=== PATIENT | female | born 1995 | race Caucasian/White ===

== ENCOUNTER 2021-06-19 00:14 | Emergency (ER) | payer BC ==
[~2021-06-19] VITALS: Ht 154.9 cm; Wt 59.9 kg
[2021-06-19 00:34] VITALS: BP 121/71
--- NOTE | 2021-06-19 00:41 | NUR ---
TO LOBBY FOLLOWING TRIAGE
--- NOTE | 2021-06-19 02:26 | NUR ---
PT AMBULATED TO BED 03
--- NOTE | 2021-06-19 02:33 | NUR ---
25 YO F BIB SELF WITH C/C OF LUPUS FLARE UP. PT STATES SHE HAS 9/10 MUSCLE PAIN, DESCRIBED A PULLING FEELING, MOSTLY ON BACK AND L SHOULDER. DENIES CHILLS, N/V/D AND FEVER. PT DENIES TAKING MEDS FOR PAIN EXCEPT FOR HER NORMAL HOME MEDS. BED LOCKED IN LOWEST POSITION, SIDE RAILS X1. HX: LUPUS RX: GABAPENTIN, PREDNISONE, AND FOLATE NKA LAST MENS: 06/09/21
[2021-06-19] MEDS ORDERED: HYDROcodone/APAP 5/325 MG 1 TAB TAB PO ONE (03:30)
--- NOTE | 2021-06-19 03:35 | NUR ---
LAB AT BEDSIDE.
[2021-06-19 03:45] LABS: BASOPHILS % (AUTO) 0.2 % (0.0-2.0); EOSINOPHILS # (AUTO) 0.1 K/uL (0-0.4); EOSINOPHILS % (AUTO) 0.8 % (0.0-4.0); HEMATOCRIT 39.4 % (36-48); HEMOGLOBIN 13.5 g/dL (12.0-16.0); LYMPHOCYTES # (AUTO) 4.8 K/uL (2.5-16.5); MEAN CORPUSCULAR HEMOGLOBIN 30 pg (27-31); MEAN CORPUSCULAR HGB CONC 34 g/dL (33-37); MEAN CORPUSCULAR VOLUME 89.1 fL (80-94); MONOCYTES # (AUTO) 0.8 K/uL (0.8-1.0); MONOCYTES % (AUTO) 7.4 % (1.7-9.3); NEUTROPHILS # (AUTO) 4.6 K/uL (1.8-7.7); NEUTROPHILS % (AUTO) 44.6 % (42.2-75.2); PLATELET COUNT (AUTO) 366 K/uL (140-450); RED BLOOD CELL COUNT(AUTO) 4.42 MIL/uL (4.20-5.40); RED CELL DISTRIBUTION WIDTH 13.7 % (11.6-13.7); WHITE BLOOD COUNT (AUTO) 10.2 K/uL (4.8-10.8)
[2021-06-19 03:52] LABS: ANION GAP 14.6 (8-16); CREATININE 0.9 mg/dL (0.6-1.3); POTASSIUM 3.6 mmol/L (3.5-5.1)
--- NOTE | 2021-06-19 03:57 | NUR ---
PT SITTING UP IN BED USING PHONE. ALL NEEDS MET AT THIS TIME. BED LOCKED IN LOWEST POSITION, SIDE RAILS X2.
--- NOTE | 2021-06-19 04:12 | NUR ---
PT AMBULATED TO WITH STEADY GAIT.
[2021-06-19] MEDS ORDERED: HYDR-5080 PO (04:52)
[2021-06-19 04:59] VITALS: BP 124/70
== END 2021-06-19 04:59 | disposition home or self-care (01) ==
LOC: MED 00:14
DX: M79.10 Myalgia, unspecified site (principal); M25.511 Pain in right shoulder; M25.512 Pain in left shoulder; M54.6 Pain in thoracic spine; Z79.899 Other long term (current) drug therapy
CPT/HCPCS: 36415; 80048; 84702; 85025; 99283

== ENCOUNTER 2022-06-10 20:49 | Emergency (ER) | payer BC, OTHER ==
[~2022-06-10] VITALS: Ht 154.9 cm; Wt 58.1 kg
[~2022-06-10 20:49] MED LIST: HYDR-5080 PO
[2022-06-10 20:55] VITALS: BP 119/76
--- NOTE | 2022-06-10 20:55 | NUR ---
TO BED AMBULATORY
--- NOTE | 2022-06-10 21:04 | NUR ---
Patient BIB by family from home. C/O bodyache x today. Patient reported, had bodyache all day, no fever, no N/V/D, No cough, congestion. Hx Lupus
--- NOTE | 2022-06-10 21:20 | NUR ---
Dr. Ayala examining patient.
[2022-06-10] MEDS ORDERED: MORPHINE SULFATE 4 MG/ML SYR IM ONE (21:25)
[2022-06-10] MEDS ORDERED: CIPR500T4 PO (21:38)
[2022-06-10] MEDS ORDERED: ACET-8386 PO (21:38)
[2022-06-10 21:52] VITALS: BP 105/56
--- NOTE | 2022-06-10 21:52 | NUR ---
Patient discharged with v/s stable. Written and verbal after care instructions given and explained. Patient alert, oriented and verbalized understanding of instructions. Ambulatory with steady gait. All questions addressed prior to discharge. ID band removed. Patient advised to follow up with PMD. Rx of [place] and Ciprofloxacin given. Patient educated on indication of medication including possible reaction and side effects. Opportunity to ask questions provided and answered.
== END 2022-06-10 21:52 | disposition home or self-care (01) ==
LOC: MED 20:49
DX: N39.0 Urinary tract infection, site not specified (principal)
CPT/HCPCS: 81002; 81025; 96372; 99283; J2270

== ENCOUNTER 2022-08-17 23:00 | Emergency (ER) | payer OTHER ==
[~2022-08-17] VITALS: Ht 154.9 cm; Wt 59.1 kg
[~2022-08-17 23:00] MED LIST changes: +ACET-8386 PO; +CIPR500T4 PO
[2022-08-17 23:07] VITALS: BP 118/69
--- NOTE | 2022-08-17 23:11 | NUR ---
PT TO LOBBY WAITING FOR BED.
[2022-08-18 01:54] VITALS: BP 118/69
[2022-08-18] MEDS ORDERED: ACET-8386 PO (14:29)
== END 2022-08-18 01:54 | disposition left against medical advice (07) ==
LOC: MED 23:00
DX: M79.10 Myalgia, unspecified site (principal); Z53.21 Procedure and treatment not carried out due to patient leaving prior to being seen by health care provider

== ENCOUNTER 2022-08-18 12:30 | Emergency (ER) | payer OTHER ==
[~2022-08-18] VITALS: Ht 154.9 cm; Wt 59.0 kg
[2022-08-18 12:44] VITALS: BP 113/70
--- NOTE | 2022-08-18 13:00 | NUR ---
BIB SELF C/O 10/10 BODY ACHES , HANDS & FEET SWELLING X 3 DAYS. PMH: LUPUS
[2022-08-18] MEDS ORDERED: KETOROLAC 30 MG/ML VIAL IM ONE (14:25)
[2022-08-18] MEDS ORDERED: ACET-8386 PO (14:29)
[2022-08-18 15:00] VITALS: BP 117/82
== END 2022-08-18 15:00 | disposition home or self-care (01) ==
LOC: MED 12:30
DX: G89.29 Other chronic pain (principal)
CPT/HCPCS: 96372; 99283; J1885

== ENCOUNTER 2022-09-30 20:52 | Emergency (ER) | payer OTHER ==
[~2022-09-30] VITALS: Ht 154.9 cm; Wt 57.6 kg
[2022-09-30 21:14] VITALS: BP 109/60
--- NOTE | 2022-09-30 21:21 | NUR ---
TO LOBBY FOLLOWING TRIAGE, UA OBTAINED
--- NOTE | 2022-09-30 22:24 | NUR ---
PT TO BED 5
--- NOTE | 2022-09-30 22:36 | NUR ---
Pt coming from home ambulatory with steady gait. Pt c/o body aches 8/10 and neck pain. Pt states she passed out and hit the back of her neck on the sink. VSS. NKA. No chest pain and no sob. Pupils PERRLA. Skin intact. A&Ox4. No known medical conditions. Bed in lowest position.
--- NOTE | 2022-09-30 22:38 | NUR ---
covid and flu swab done and sent to lab.
[2022-09-30] MEDS ORDERED: KETOROLAC 30 MG/ML VIAL IM ONE (22:40)
--- NOTE | 2022-09-30 22:56 | NUR ---
Lab called with critical lab value results COVID POSITIVE. Pt notified.
--- NOTE | 2022-09-30 23:06 | NUR ---
ERMD SIN AT BEDSIDE.
--- NOTE | 2022-09-30 23:24 | NUR ---
#20g IV placed on left AC using aseptic technique. Blood drawn and sent to lab. Flushed line with 10cc no infiltration noted. Saline lock.
[2022-09-30] MEDS ORDERED: NACL 0.9% 1,000 ML IV ONE (23:30)
[2022-09-30 23:32] LABS: BASOPHILS % (AUTO) 0.5 % (0.0-2.0); EOSINOPHILS # (AUTO) 0.1 K/uL (0-0.4); EOSINOPHILS % (AUTO) 0.6 % (0.0-4.0); HEMATOCRIT 32.8 % (36-48); LYMPHOCYTES # (AUTO) 1.5 K/uL (2.5-16.5); LYMPHOCYTES % (AUTO) 17.3 % (20.5-51.1); MEAN CORPUSCULAR HEMOGLOBIN 28 pg (27-31); MEAN CORPUSCULAR HGB CONC 34 g/dL (33-37); MEAN CORPUSCULAR VOLUME 82.4 fL (80-94); MONOCYTES # (AUTO) 0.7 K/uL (0.8-1.0); MONOCYTES % (AUTO) 8.3 % (1.7-9.3); NEUTROPHILS # (AUTO) 6.5 K/uL (1.8-7.7); NEUTROPHILS % (AUTO) 73.3 % (42.2-75.2); PLATELET COUNT (AUTO) 545 K/uL (140-450); RED BLOOD CELL COUNT(AUTO) 3.97 MIL/uL (4.20-5.40); RED CELL DISTRIBUTION WIDTH 17.2 % (11.6-13.7); WHITE BLOOD COUNT (AUTO) 8.9 K/uL (4.8-10.8)
[2022-09-30] MEDS ORDERED: TAM75 PO (23:37)
[2022-09-30] MEDS ORDERED: NIRM1TAB PO (23:37)
[2022-09-30] MEDS ORDERED: ACET-10509 PO (23:38)
[2022-09-30 23:52] LABS: ALBUMIN 2.9 g/dL (3.4-5.0); ANION GAP 7.9 (8-16); CARBON DIOXIDE 28.2 mmol/L (21-32); CREATININE 0.7 mg/dL (0.6-1.3); POTASSIUM 4.1 mmol/L (3.5-5.1); TOTAL BILIRUBIN 0.4 mg/dL (0.0-1.0)
[2022-10-01] MEDS ORDERED: ONDANSETRON 4 MG/2 ML VIAL IVP ONE
[2022-10-01] MEDS ORDERED: MORPHINE SULFATE 4 MG/ML SYR IVP ONE
[2022-10-01 00:38] VITALS: BP 115/68
--- NOTE | 2022-10-01 00:38 | NUR ---
Patient discharged with v/s stable. Written and verbal after care instructions given and explained. Patient verbalized understanding. Ambulatory with steady gait. All questions addressed prior to discharge. Advised to follow up with PMD.
== END 2022-10-01 00:38 | disposition home or self-care (01) ==
LOC: MED 20:52
DX: U07.1 COVID-19 (principal); J10.1 Influenza due to other identified influenza virus with other respiratory manifestations; D64.9 Anemia, unspecified; D75.839 Thrombocytosis, unspecified; Z79.899 Other long term (current) drug therapy; Z79.891 Long term (current) use of opiate analgesic; Z79.2 Long term (current) use of antibiotics
CPT/HCPCS: 36415; 80053; 81002; 81025; 83690; 85025; 87426; 87804; 96361; 96372; 96374; 96375; 99284; J1885; J2270; J2405; J7030

== ENCOUNTER 2022-10-25 10:35 | Emergency (ER) | payer OTHER ==
[~2022-10-25] VITALS: Ht 154.9 cm; Wt 59.9 kg
[~2022-10-25 10:35] MED LIST changes: +ACET-10509 PO; -ACET-8386 PO; +ACET-8905 PO; +NIRM1TAB PO; +TAM75 PO
[2022-10-25 11:08] VITALS: BP 100/72
--- NOTE | 2022-10-25 11:13 | NUR ---
PT AMBULATED TO ER BED 4
[2022-10-25] MEDS ORDERED: NACL 0.9% 500 ML IV ONE (11:25)
[2022-10-25] MEDS ORDERED: KETOROLAC 30 MG/ML VIAL IVP ONE (11:25)
[2022-10-25] MEDS ORDERED: ONDANSETRON 4 MG/2 ML VIAL IVP ONE (11:25)
[2022-10-25] MEDS ORDERED: HYDROcodone/APAP 5/325 MG 1 TAB TAB PO ONE (11:25)
--- NOTE | 2022-10-25 11:40 | NUR ---
27/F PRESENTS TO ED WITH C/O BILATERAL HANDS, SHOULDERS AND BACK PAIN X1 WEEK. PATIENT REPORTS HX OF LUPUS AND BELIEVES SHE IS HAVING A FLARE UP. STATES HER RX OF MEDS AND ROUTINE OF TAKING BATHS HAVE NOT RELIEVED HER PAIN USUAL. DENIES RECENT INJURY OR TRAUMA.
--- NOTE | 2022-10-25 11:52 | NUR ---
BRYNN SWAB COLLECTED AND WALKED TO LAB
[2022-10-25] MEDS ORDERED: MORPHINE SULFATE 4 MG/ML SYR IVP ONE (12:30)
[2022-10-25 12:35] LABS: APPEARANCE,URINE CLOUDY (CLEAR); BILIRUBIN,URINE NEGATIVE (NEGATIVE); BLOOD, URINE NEGATIVE (NEGATIVE); COLOR,URINE YELLOW (YELLOW); LEUKOCYTE ESTERASE ,URINE TRACE (NEGATIVE); NITRITE, URINE POSITIVE (NEGATIVE); PH,URINE 6.5 (5.0-9.0); UGLUCOSE NEGATIVE (NEGATIVE)
[2022-10-25 13:00] LABS: RBC,URINE NONE SEEN /HPF (0-5); WBC,URINE 0-5 /HPF (0-5)
[2022-10-25 13:01] LABS: URINE AMORPHOUS URATE 1+ /HPF (None Seen)
[2022-10-25] MEDS ORDERED: ACET-8905 PO (13:18)
[2022-10-25] MEDS ORDERED: CEPH-588 PO (13:18)
[2022-10-25 13:28] VITALS: BP 109/61
--- NOTE | 2022-10-25 13:28 | NUR ---
IV removed, catheter intact and site benign. Applied folded 4x4 gauze and tape to stop bleeding.
--- NOTE | 2022-10-25 13:29 | NUR ---
Patient discharged with v/s stable. Written and verbal after care instructions ABOUT MUSCLE PAIN, UTI AND CHRONIC PAIN given and explained. Patient alert, oriented and verbalized understanding of instructions. Ambulatory with steady gait. All questions addressed prior to discharge. ID band removed. Patient advised to follow up with PMD. Rx of KEFLEX AND NORCO 5-325 given. Patient educated on indication of medication including possible reaction and side effects. Opportunity to ask questions provided and answered. PATIENT EDUCATED ON USE OF NARCOTICS, ADVISED TO AVOID DRINKING OR DRIVING WHILE USING.
--- NOTE | 2022-10-27 11:00 | NUR ---
LATE ENTRY. RECEIVED POSITIVE URINE CULTURE. FORM GIVEN TO DR MATT. TREATMENT APPROPRIATE. FORM PLACED IN BINDER
== END 2022-10-25 13:29 | disposition home or self-care (01) ==
LOC: MED 10:35
DX: G89.4 Chronic pain syndrome (principal); Z20.822 Contact with and (suspected) exposure to COVID-19; N39.0 Urinary tract infection, site not specified; Z79.899 Other long term (current) drug therapy
CPT/HCPCS: 81001; 81025; 87086; 87426; 96361; 96374; 96375; 99284; J1885; J2270; J2405; J7030

== ENCOUNTER 2023-01-04 22:55 | Emergency (ER) | payer OTHER ==
[~2023-01-04] VITALS: Ht 154.9 cm; Wt 55.8 kg
[~2023-01-04 22:55] MED LIST changes: +CEPH-588 PO
[2023-01-04 23:00] VITALS: BP 129/84
[2023-01-04] MEDS ORDERED: KETOROLAC 30 MG/ML VIAL IM ONE (23:40)
[2023-01-04] MEDS ORDERED: HYDROcodone/APAP 7.5/325 MG 1 TAB PO ONE (23:40)
[2023-01-04] MEDS ORDERED: DEXAMETHASONE 10 MG/ML VIAL IM ONE (23:40)
--- NOTE | 2023-01-04 23:41 | NUR ---
CATHERINE PERAZA examining patient.
--- NOTE | 2023-01-04 23:46 | NUR ---
Patient taken to bed 11.
[2023-01-04] MEDS ORDERED: NAPR-54 PO (23:59)
[2023-01-04] MEDS ORDERED: LID5T TP (23:59)
[2023-01-04] MEDS ORDERED: PRED20TA5 PO (23:59)
[2023-01-05 00:30] VITALS: BP 129/84
--- NOTE | 2023-01-05 00:30 | NUR ---
Patient discharged with v/s stable. Written and verbal after care instructions given and explained. Patient alert, oriented and verbalized understanding of instructions. Ambulatory with steady gait. All questions addressed prior to discharge. ID band removed. Patient advised to follow up with PMD. Rx of LIDODERM, NAPROSYN given. Patient educated on indication of medication including possible reaction and side effects. Opportunity to ask questions provided and answered.
== END 2023-01-05 00:30 | disposition home or self-care (01) ==
LOC: MED 22:55
DX: G89.4 Chronic pain syndrome (principal); R03.0 Elevated blood-pressure reading, without diagnosis of hypertension; L93.0 Discoid lupus erythematosus; Z79.899 Other long term (current) drug therapy
CPT/HCPCS: 96372; 99284; J1100; J1885